=== PATIENT | female | born 1970 | race Caucasian/White ===

== ENCOUNTER → 2016-12-21 | Outpatient (CLI) | payer MEDICARE | END | disposition home or self-care (01) | LOC: CPPFTMAIN 10:30 | PROVIDERS: ATTEND Family Medicine | DX: J43.9 Emphysema, unspecified (principal) | CPT/HCPCS: 94060; 94726; 94729 ==

== ENCOUNTER → 2017-02-24 | Outpatient (CLI) | payer MEDICARE ==
--- NOTE | 2017-02-28 08:33 | MM ---
Reason for exam: screening (asymptomatic). Last mammogram was performed 1 year and 2 months ago. History: Patient is postmenopausal. Benign excisional biopsy of the right breast, 1998. Took hormonal contraceptives for 10 years beginning at age 19. Physical Findings: A clinical breast exam by your physician is recommended on an annual basis and results should be correlated with mammographic findings. MG 3D Screening Mammo W/Cad Bilateral CC and MLO view(s) were taken. Prior study comparison: December 30, 2015, bilateral MG screening mammo w CAD. The breast tissue is heterogeneously dense. This may lower the sensitivity of mammography. No significant changes when compared with prior studies. ASSESSMENT: Benign, BI-RAD 2 RECOMMENDATION: Routine screening mammogram of both breasts in 1 year.
== END | disposition home or self-care (01) ==
LOC: RADMAMWWP 10:26
PROVIDERS: ATTEND Family Medicine
DX: Z12.31 Encounter for screening mammogram for malignant neoplasm of breast (principal)
CPT/HCPCS: 77063; G0202

== ENCOUNTER → 2017-05-09 | Outpatient (CLI) | payer MEDICARE ==
--- NOTE | 2017-05-09 11:27 | XR ---
EXAMINATION TYPE: XR cervical spine comp DATE OF EXAM: 05/09/2017 TECHNIQUE: Frontal, lateral, oblique, and open mouth view of the cervical spine are obtained. HISTORY: M54.2 back pain . Neck pain for 3 weeks per patient. COMPARISON: Cervical spine x-ray March 27, 2014 FINDINGS: The cervical spine is visualized in its entirety from C1 thru the top of T1 level, it rede monstrates straightened alignment without evidence of acute fracture or dislocation. The pre-vertebr al soft tissue appears within normal limits. The C1-C2 articulation is within normal limits on the o pen mouth view. Vertebral body heights and disc space heights are maintained. The oblique images are within normal limits. Overlying soft tissue is unremarkable. IMPRESSION: Loss of normal cervical curvature otherwise unremarkable study. No significant change fro m prior.
== END | disposition home or self-care (01) ==
LOC: RADXRMAIN 10:54
PROVIDERS: ATTEND Family Medicine
DX: M40.202 Unspecified kyphosis, cervical region (principal); M54.2 Cervicalgia
CPT/HCPCS: 72050

== ENCOUNTER → 2017-12-26 | Outpatient (CLI) | payer MEDICARE ==
--- NOTE | 2017-12-26 15:48 | CT ---
EXAMINATION TYPE: CT abdomen w con DATE OF EXAM: 12/26/2017 COMPARISON: Prior CT abdomen pelvis 08/16/2011 HISTORY: R/O hiatal hernia, reflux. K 43.9, ventral hernia CT DLP: 1098 mGycm Automated exposure control for dose reduction was used. TECHNIQUE: Helical acquisition of images was performed from the lung bases through the top of iliac crest to include entire abdomen. CONTRAST: Performed with Oral Contrast and with IV Contrast, patient injected with 100 mL of Omnipaque 300. FINDINGS: Gastroesophageal junction shows a similar appearance to prior exam, the may be a small hiat al hernia LUNG BASES: No significant abnormality is appreciated. LIVER/GB: Liver is at the upper limit of normal for size, there is low attenuation, consider hepatic steatosis, gallbladder are unremarkable. PANCREAS: No significant abnormality is seen. SPLEEN: Upper limit of normal for size ADRENALS: No significant abnormality is seen. KIDNEYS: Extrarenal pelves are present within the kidneys BOWEL: Diverticular changes associated with the sigmoid colon, the appendix is normal. LYMPH NODES: No significant abnormality is appreciated. OSSEOUS STRUCTURES: No significant abnormality is seen. FREE AIR: No Free Air visible ASCITES: None visible. RETROPERITONEAL ADENOPATHY: No Retroperitoneal Adenopathy visible. IMPRESSION: DIVERTICULOSIS. DIFFICULT TO EXCLUDE SMALL HIATAL HERNIA. BORDERLINE SIZE OF THE LIVER AND SPLEEN. CO NSIDER HEPATIC STEATOSIS.
== END | disposition home or self-care (01) ==
LOC: RADCTMAIN 14:24
PROVIDERS: ATTEND Surgery Plastic and Reconstructive Surgery
DX: K57.90 Diverticulosis of intestine, part unspecified, without perforation or abscess without bleeding (principal)
CPT/HCPCS: 74160; Q9967

== ENCOUNTER → 2018-04-03 | Outpatient (CLI) | payer MEDICARE ==
--- NOTE | 2018-04-04 09:44 | MM ---
Reason for exam: screening (asymptomatic). Last mammogram was performed 1 year and 1 month ago. History: Patient is postmenopausal. Benign excisional biopsy of the right breast, 1998. Took hormonal contraceptives for 10 years beginning at age 19. Physical Findings: A clinical breast exam by your physician is recommended on an annual basis and results should be correlated with mammographic findings. MG 3D Screening Mammo W/Cad Bilateral CC and MLO view(s) were taken. Prior study comparison: February 24, 2017, bilateral MG 3d screening mammo w/cad. December 30, 2015, bilateral MG screening mammo w CAD. The breast tissue is heterogeneously dense. This may lower the sensitivity of mammography. There is no discrete abnormality. No significant changes when compared with prior studies. ASSESSMENT: Negative, BI-RAD 1 RECOMMENDATION: Routine screening mammogram of both breasts in 1 year.
== END | disposition home or self-care (01) ==
LOC: RADMAMWWP 09:26
PROVIDERS: ATTEND Family Medicine
DX: Z12.31 Encounter for screening mammogram for malignant neoplasm of breast (principal)
CPT/HCPCS: 77063; 77067

== ENCOUNTER → 2019-03-09 | Outpatient (CLI) | payer MEDICARE ==
--- NOTE | 2019-03-09 11:09 | XR ---
EXAMINATION TYPE: XR cervical spine comp DATE OF EXAM: 03/09/2019 CLINICAL HISTORY: pain COMPARISON: NONE TECHNIQUE: Frontal, lateral, oblique, swimmers, and open mouth view of the cervical spine are obtaine d. FINDINGS: The cervical spine is visualized in its entirety from C1 thru the top of T1 level. It is s atisfactory in alignment without evidence of acute fracture or dislocation. The pre-vertebral soft t issue appears within normal limits. Moderate degenerative disc space narrowing and spondylosis noted at C5-6 and C6-7. The C1-C2 articulation is unremarkable on the open mouth view. The oblique images are within normal limits. IMPRESSION: No acute fracture or dislocation is seen in the cervical spine.ICD 10 NO FRACTURE, INITI AL EVALUATION
[2019-03-09 11:35] LABS: Basophils % (A) 0 %; Eosinophils # (A) 0.1 k/uL (0-0.7); Eosinophils % (A) 3 %; HCT 40.7 % (34.0-46.0); HGB 13.5 gm/dL (11.4-16.0); Lymphocytes # (A) 1.2 k/uL (1.0-4.8); Lymphocytes % (A) 25 %; MCHC 33.2 g/dL (31.0-37.0); MCV 90.4 fL (80.0-100.0); Mean Platelet Volume 7.5; Monocytes # (A) 0.2 k/uL (0-1.0); Monocytes % (A) 4 %; Neutrophils # (A) 3.2 k/uL (1.3-7.7); Neutrophils % (A) 68 %; Platelet Count 173 k/uL (150-450); RDW 13.6 % (11.5-15.5); WBC 4.7 k/uL (3.8-10.6)
[2019-03-09 11:38] LABS: ALT 29 U/L (9-52); AST 39 U/L (14-36); Albumin 4.3 g/dL (3.5-5.0); Alkaline Phosphatase 118 U/L (38-126); Anion Gap 6 mmol/L; Blood Urea Nitrogen 4 mg/dL (7-17); Calcium 9.6 mg/dL (8.4-10.2); Carbon Dioxide 26 mmol/L (22-30); Chloride 109 mmol/L (98-107); Cholesterol 167 mg/dL (<200); Glucose 110 mg/dL (74-99); HDL Cholesterol 57 mg/dL (40-60); LDL Cholesterol,Calculated 44 mg/dL (0-99); Potassium 4.2 mmol/L (3.5-5.1); Sodium 141 mmol/L (137-145); Total Bilirubin 0.6 mg/dL (0.2-1.3); Total Protein 6.8 g/dL (6.3-8.2); Triglycerides 328 mg/dL (<150)
[2019-03-09 11:53] LABS: T4, Free (Free Thyroxine) 0.92 ng/dL (0.78-2.19)
== END | disposition home or self-care (01) ==
LOC: RADXRMAIN 10:27
PROVIDERS: ATTEND Family Medicine
DX: M54.2 Cervicalgia (principal); E03.9 Hypothyroidism, unspecified; J44.9 Chronic obstructive pulmonary disease, unspecified; Z51.81 Encounter for therapeutic drug level monitoring
CPT/HCPCS: 72050; 80053; 80061; 84439; 84443; 85025

== ENCOUNTER → 2019-08-01 | Outpatient (CLI) | payer MEDICARE ==
--- NOTE | 2019-08-01 11:58 | US ---
EXAMINATION TYPE: US abdomen complete DATE OF EXAM: 08/01/2019 COMPARISON: CT 2018 CLINICAL HISTORY: R10.12 Left upper quadrant pain. RUQ pain x 1 week EXAM MEASUREMENTS: Liver Length: 16.8 cm Gallbladder Wall: 0.2 cm CBD: 0.5 cm Spleen: 12.2 cm Right Kidney: 9.9 x 3.8 x 5.0 cm Left Kidney: 10.1 x 4.1 x 4.4 cm Pancreas: visualized portions wnl, limited by overlying midline bowel gas Liver: increased echogenicity Gallbladder: wnl Evidence for sonographic Garces's sign: no CBD: visualized portions wnl, limited by overlying bowel gas Spleen: wnl Right Kidney: wnl Left Kidney: wnl Upper IVC: wnl Abd Aorta: wnl IMPRESSION: 1. Mild fatty infiltration liver.
== END | disposition home or self-care (01) ==
LOC: RADUSWWP 10:55
PROVIDERS: ATTEND Family Medicine
DX: K76.0 Fatty (change of) liver, not elsewhere classified (principal)
CPT/HCPCS: 76700

== ENCOUNTER → 2019-09-04 | Outpatient (CLI) | payer MEDICARE ==
--- NOTE | 2019-09-04 11:48 | CT ---
EXAMINATION TYPE: CT abdomen pelvis wo con DATE OF EXAM: 09/04/2019 COMPARISON: 12/26/2017 HISTORY: 48-year-old female with pain, Diverticulitis CT DLP: 967 mGycm. Automated exposure control for dose reduction was used. TECHNIQUE: Contiguous axial scanning of the abdomen and pelvis without IV contrast. Coronal and sagit mei reconstructions performed. FINDINGS: Heart normal size without pericardial effusion. Lung bases without pleural effusion. Liver enlarged measuring 19.0 cm. Mildly diminished density suggest mild fatty infiltration. Spleen borderline enlarged and 13.8 cm. Gallbladder, adrenal glands, kidneys, and pancreas show no gross abnormal by noncontrast CT. Mild atherosclerotic calcifications abdominal aorta and iliac arteries without aneurysm. Normal appendix. Scattered mild stool. Mild diverticular change mid to distal sigmoid. No pericolic i nflammatory change. No dilated small bowel, free fluid, or free air. No mesenteric or retroperitoneal lymphadenopathy. Mild bladder wall thickening. Uterus is retroverted. Both ovaries are visualized. No abnormal fluid c ollection in the pelvis or pelvic lymphadenopathy. Bones: No osseous destructive process. IMPRESSION: 1. Only mild diverticular change of the mid to distal sigmoid. No CT findings of acute diverticuliti s. 2. Hepatomegaly (19.0 cm) with mild fatty infiltration. 3. Borderline splenomegaly (13.8 cm). 4. Mild bladder wall thickening. Correlate to exclude cystitis.
== END | disposition home or self-care (01) ==
LOC: RADCTMAIN 11:10
PROVIDERS: ATTEND Surgery Plastic and Reconstructive Surgery
DX: K57.30 Diverticulosis of large intestine without perforation or abscess without bleeding (principal); K76.0 Fatty (change of) liver, not elsewhere classified; R16.2 Hepatomegaly with splenomegaly, not elsewhere classified; N32.89 Other specified disorders of bladder
CPT/HCPCS: 74176

== ENCOUNTER 2020-11-14 05:44 | Emergency (ER) | payer MEDICARE ==
[2020-11-14] MEDS ORDERED: MORPHINE SULFATE 4 MG/ML SYRINGE IM STA (05:53)
[2020-11-14] MEDS ORDERED: SODIUM CHLORIDE 0.9% 500 ML 500 ML IV STA (06:10)
[2020-11-14] MEDS ORDERED: PROPOFOL 10 MG/ML 20 ML VIAL IV STA (06:10)
[2020-11-14] MEDS ORDERED: PROPOFOL 10 MG/ML 20 ML VIAL IV ONE (06:33)
--- NOTE | 2020-11-14 06:38 | XR ---
EXAM: XR Left Wrist Complete, 2 Views CLINICAL HISTORY: FALL, PAIN, DEFORMITY TECHNIQUE: Frontal and lateral views of the left wrist. COMPARISON: No relevant prior studies available. FINDINGS: Bones/joints: Acute comminuted moderately displaced Colles fracture with impaction of fracture fragments associated. Intra-articular extension cannot be definitely excluded. Overlying soft tissue swelling. No dislocation. Soft tissues: See above. IMPRESSION: Acute comminuted moderately displaced Colles fracture with impaction of fracture fragments associated. Intra-articular extension cannot be definitely excluded. Overlying soft tissue swelling.
--- NOTE | 2020-11-14 06:42 | ED ---
Upper Extremity HPI - General Source: patient, family Mode of arrival: ambulatory Limitations: physical limitation <Meek Evans - Last Filed: 11/14/20 07:02> <Don Maldonado - Last Filed: 11/19/20 07:27> - General Chief Complaint: Extremity Injury, Upper Stated Complaint: Fall, left wrist injury Time Seen by Provider: 11/14/20 05:59 - History of Present Illness Initial Comments: This is a 50-year-old female presents emergency Department chief complaint of left wrist injury. Patient states that she slipped on the snow falling Herself of left hand. Patient is right-hand dominant. She has had prior ganglion cyst removal on the left. No paresthesias. No head injury no loss conscious. She states there is a small abrasion no bleeding. Patient offers no complaints. Tetanus is up-to-date. (Meek Evans) - Related Data Home Medications Medication Instructions Recorded Confirmed Cetirizine HCl 10 mg PO DAILY 08/21/14 12/23/15 Cyclobenzaprine [Flexeril] 10 mg PO HS PRN 08/21/14 12/23/15 Hydrocodone/Acetaminophen [[place] 1 each PO Q4H PRN 08/21/14 12/23/15 10-325] Multivitamins, Thera [Multivitamin] 1 each PO DAILY 08/21/14 12/23/15 Potassium Chloride 20 meq PO DAILY 08/21/14 12/23/15 Pregabalin [Lyrica] 150 mg PO BID 08/21/14 12/23/15 Tiotropium 18 Mcg/Puff [Spiriva] 1 cap INHALATION DAILY PRN 08/21/14 12/23/15 buPROPion HCL [Wellbutrin XL] 300 mg PO DAILY 08/21/14 12/23/15 clonazePAM [KlonoPIN] 1 mg PO BID 08/21/14 12/23/15 ARIPiprazole [Abilify] 10 mg PO HS 09/25/15 12/23/15 Atorvastatin [Lipitor] 20 mg PO DAILY 09/25/15 12/23/15 Dicyclomine [Bentyl] 20 mg PO BID 09/25/15 12/23/15 Ibuprofen [Motrin] 800 mg PO Q6HR PRN 09/25/15 12/23/15 Omeprazole [PriLOSEC] 20 mg PO AC-BRKFST 09/25/15 12/23/15 Allergies Allergy/AdvReac Type Severity Reaction Status Date / Time No Known Allergies Allergy Verified 11/14/20 05:54 Review of Systems ROS Other: All systems not noted in ROS Statement are negative. <Meek Evans - Last Filed: 11/14/20 07:02> ROS Other: All systems not noted in ROS Statement are negative. <Don Maldonado - Last Filed: 11/19/20 07:27> ROS Statement: Those systems with pertinent positive or pertinent negative responses have been documented in the HPI. Past Medical History Past Medical History: COPD, Fibromyalgia, GERD/Reflux, Hyperlipidemia, Memory Impairment, Osteoarthritis (OA), Thyroid Disorder Additional Past Medical History / Comment(s): aug 03, 2012 cardiac arrest 6 episodes per pt due to anorexia,. 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 Absent: tenderness, meningismus, lymphadenopathy Respiratory exam: Present: normal lung sounds bilaterally. Absent: respiratory distress, wheezes, rales, rhonchi, stridor Cardiovascular Exam: Present: regular rate, normal rhythm, normal heart sounds. Absent: systolic murmur, diastolic murmur, rubs, gallop, clicks Extremities exam: Present: other (Left wrist there is obvious deformity, radial pulses palpable equal bilaterally, cap refill less than 2 seconds of all digits of left hand. There is no proximal forearm tenderness no humeral tenderness) <Meek Evans - Last Filed: 11/14/20 07:02> Course Vital Signs 11/14/20 11/14/20 11/14/20 05:55 06:27 06:30 Temperature 97.4 F L Pulse Rate 87 86 85 Respiratory 22 19 18 Rate Blood Pressure 121/60 121/86 102/75 O2 Sat by Pulse 96 98 98 Oximetry 11/14/20 11/14/20 11/14/20 06:35 06:40 06:45 Temperature Pulse Rate 83 84 87 Respiratory 17 16 18 Rate Blood Pressure 113/69 108/50 112/76 O2 Sat by Pulse 98 96 95 Oximetry 11/14/20 11/14/20 11/14/20 06:47 07:00 07:32 Temperature 98.0 F Pulse Rate 82 81 86 Respiratory 19 17 18 Rate Blood Pressure 109/77 116/83 118/83 O2 Sat by Pulse 96 97 96 Oximetry Procedures - Orthopedic Fracture Reduction Fracture #1 Consent Obtained: written consent Side: left Fracture Reduction Location: radius, ulna Analgesia: procedural sedation Technique: direct manipulation Post Reduction X-rays Demonstrate: anatomical reduction Post-Reduction Neuro Exam: intact Post-Reduction Vascular Exam: intact Splint Applied: Yes Patient Tolerated Procedure: well, no complications - Orthopedic Splinting/Casting Injury #1 Side: left Upper Extremity Injury Location: short arm, wrist Upper Extremity Immobilizer: volar splint, synthetic pre-padded splint <Meek Evans - Last Filed: 11/14/20 07:02> - Procedural Sedation Indications: fracture/dislocation reduction ASA Class: II Mallampati Airway Score: 3 Preparation: cardiac monitor technician applied, pulse oximeter, capnometry used, supplemental O2 applied, suction/airway equipment at bedside, IV secured IV Propofol Dose (mgs): 130 Complications: none Patient Tolerated Procedure: well, no complications <Don Maldonado - Last Filed: 11/19/20 07:27> - Procedural Sedation Additional Comments: I discussed risks, benefits, indications of procedural sedation and closed reduction of the patient's left wrist fracture. Propofol was administered in aliquots until the sedation level was achieved. Closed reduction and sedation performed with no complication, patient tolerated procedure well. (Don Maldonado) Medical Decision Making <Meek Evans - Last Filed: 11/14/20 07:02> <Don Maldonado - Last Filed: 11/19/20 07:27> - Medical Decision Making 50-year-old female presented for fall, left wrist injury. Patient had wrist fracture with displacement. This was reduced with procedural sedation. Patient will follow-up with orthopedics. Patient has seen Dr. Pike in the past. Patient provided on-call orthopedics and her prior orthopedic surgeon (Meek Evans) I saw this patient in conjunction with the physician medical services assistant. I performed independent history and physical exam. I directly supervised and participated in the procedure. Agree with case management. Case discussed with orthopedic surgeon on-call, who did offer admission, but the patient does so slowly feeling better and declines. She will follow-up in clinic. Discussed appropriate follow-up and return parameters. (Don Maldonado) Disposition Is patient prescribed a controlled substance at d/c from ED?: No Time of Disposition: 07:03 <Meek Evans - Last Filed: 11/14/20 07:02> <Don Maldonado - Last Filed: 11/19/20 07:27> Clinical Impression: Fracture, Colles, left, closed Disposition: HOME SELF-CARE Condition: Stable Instructions (If sedation given, give patient instructions): Arm Fracture in Adults (ED), Moderate Sedation (ED) Additional Instructions: Please return to the Emergency Department if symptoms worsen or any other concerns. Referrals: Steven Slater MD [Primary Care Provider] - 1-2 days Alex Pike DO [Doctor of Osteopathic Medicine] - 1-2 days David Campoverde DO [Doctor of Osteopathic Medicine] - 1-2 days
[2020-11-14] MEDS ORDERED: KETOROLAC 15 MG/ML 1 ML VIAL IVP STA (06:46)
[2020-11-14] MEDS ORDERED: MORPHINE SULFATE 4 MG/ML SYRINGE IVP STA (06:46)
--- NOTE | 2020-11-14 07:18 | XR ---
EXAM: XR Left Wrist Complete, 2 Views CLINICAL HISTORY: Postreduction TECHNIQUE: Frontal and lateral views of the left wrist. COMPARISON: Earlier the same day. FINDINGS: Bones/joints: Overlying cast obscures fine bony detail and limits evaluation. Interval reduction of previously noted Colles fracture. Probable nondisplaced fracture of the head of the ulna, more conspicuous on this study than the prior. No dislocation. Soft tissues: Associated overlying soft tissue swelling. No radiopaque foreign body. IMPRESSION: 1. Interval reduction of previously noted Colles fracture. 2. Probable nondisplaced fracture of the head of the ulna, more conspicuous on this study than the prior.
[2020-11-14 07:32] VITALS: BP 118/83; PULSE 86; RESP 18; TEMP 98
--- NOTE | 2020-11-15 10:58 | CDI ---
Dear Don Maldonado MD Please do addendum to ED report start and stop time of moderate sedation for fracture reduction. Thank you, Dequan [employer] Contract Analyst If you have any questions, please contact Television Producer at [phone] [facility]
== END 2020-11-14 07:45 | disposition home or self-care (01) ==
LOC: EC 05:44
DX: S52.532A Colles' fracture of left radius, initial encounter for closed fracture (principal); J44.9 Chronic obstructive pulmonary disease, unspecified; K21.9 Gastro-esophageal reflux disease without esophagitis; E78.5 Hyperlipidemia, unspecified; M19.90 Unspecified osteoarthritis, unspecified site; F41.9 Anxiety disorder, unspecified; F32.9 Major depressive disorder, single episode, unspecified; F43.10 Post-traumatic stress disorder, unspecified; F17.200 Nicotine dependence, unspecified, uncomplicated; Z79.899 Other long term (current) drug therapy; W00.0XXA Fall on same level due to ice and snow, initial encounter
CPT/HCPCS: 99283; 96374; 96375; 96372; 25605; 99152; 73100; J2270; J1885; J2704

== ENCOUNTER → 2021-04-22 | Outpatient (CLI) | payer MEDICARE ==
--- NOTE | 2021-04-23 14:54 | MM ---
Reason for exam: screening (asymptomatic). Last mammogram was performed 2 years ago. History: Patient is postmenopausal. Benign excisional biopsy of the right breast, 1998. Took hormonal contraceptives for 10 years beginning at age 19. Physical Findings: A clinical breast exam by your physician is recommended on an annual basis and results should be correlated with mammographic findings. MG 3D Screening Mammo W/Cad Bilateral CC and MLO view(s) were taken. Prior study comparison: April 11, 2019, bilateral MG 3d screening mammo w/cad. April 03, 2018, bilateral MG 3d screening mammo w/cad. The breast tissue is heterogeneously dense. This may lower the sensitivity of mammography. ASSESSMENT: Negative, BI-RAD 1 RECOMMENDATION: Routine screening mammogram of both breasts in 1 year.
== END | disposition home or self-care (01) ==
LOC: RADMAMWWP 09:05
PROVIDERS: ATTEND Family Medicine
DX: Z12.31 Encounter for screening mammogram for malignant neoplasm of breast (principal); Z78.0 Asymptomatic menopausal state; Z79.3 Long term (current) use of hormonal contraceptives
CPT/HCPCS: 77063; 77067

== ENCOUNTER → 2021-08-28 | Outpatient (CLI) | payer MEDICARE ==
--- NOTE | 2021-08-28 10:31 | CT ---
EXAMINATION TYPE: CT abdomen pelvis wo con DATE OF EXAM: 08/28/2021 HISTORY: Right lower quadrant pain CT DLP: 913 mGycm. Automated Exposure Control for Dose Reduction was Utilized. TECHNIQUE: CT scan of the abdomen and pelvis is performed with oral but without IV contrast. COMPARISON: CT abdomen and pelvis September 04, 2019 FINDINGS: Within the limitations of a non-contrast study, the following observations are made. LUNG BASES: Some reticulation and suspect dependent atelectasis or mild scarring in the posterior asp ect of the lung bases similar to prior. LIVER/GB: Liver size stable. Upper limits of normal. PANCREAS: No significant abnormality is seen. SPLEEN: Stable mild splenomegaly at 13.7 cm long axis coronal image 54. ADRENALS: No significant abnormality is seen. KIDNEYS: Extrarenal pelvises redemonstrated bilaterally. BOWEL: Oral contrast only reaches level of the proximal ileal loops making evaluation of bowel slight ly suboptimal. There is no suspicious small or large bowel dilatation. Terminal ileum shows possible mild wall thickening coronal image 46. Appendix appears within normal limits ascending from the cecum . Just superior to the cecum there is a prominent 1.9 cm diverticulum with moderate focal surrounding fluid and fat stranding. Findings consistent with acute diverticulitis. No free air. No Well-formed fluid collection or abscess. GENITAL ORGANS: Retroflexed uterus. LYMPH NODES: No greater than 1cm abdominal or pelvic lymph nodes are appreciated. OSSEOUS STRUCTURES: No significant abnormality is seen. OTHER: Mild calcified plaque of the abdominal aorta extends into branch vessels. IMPRESSION: New focal moderate right-sided uncomplicated acute diverticulitis. A Yellow level critical message alert has been initiated for Eran Stinson Jr, DO via the [employer] Critical Results System on 08/28/2021 10:29 AM. This message alert has been sent to Eran caban Jr, DO via the preferences provided by the clinician for the receipt of Radiology Critical Findi ngs. Message ID [id number].
== END ==
LOC: RADCTMAIN 08:44
PROVIDERS: ATTEND Family Medicine
DX: K57.32 Diverticulitis of large intestine without perforation or abscess without bleeding (principal)
CPT/HCPCS: 74176

== ENCOUNTER → 2022-06-18 | Outpatient (CLI) | payer MEDICARE ==
--- NOTE | 2022-06-25 17:52 | MM ---
Reason for Exam: Screening (asymptomatic). Last mammogram was performed 1 year(s) and 2 month(s) ago. Patient History: Menarche at age 12. First Full-Term at age 19. Postmenopausal. Hormonal Contraceptives for 10 years from age 19 until age 31. 1999, Benign Excisional Biopsy on the right side. Risk Values: Justine 5 year model risk: 1.1%. NCI Lifetime model risk: 9.1%. Prior Study Comparison: 04/03/2018 Bilateral Screening Mammogram, [facility]. 04/11/2019 Bilateral Screening Mammogram, [facility]. 04/22/2021 Bilateral Screening Mammogram, [facility]. Tissue Density: The breast tissue is heterogeneously dense. This may lower the sensitivity of mammography. Findings: Analyzed By CAD. There is no suspicious group of microcalcifications or new suspicious mass in either breast. Overall Assessment: Negative, BI-RAD 1 Management: Screening Mammogram of both breasts in 1 year. A clinical breast exam by your physician is recommended on an annual basis and results should be correlated with mammographic findings. Electronically signed and approved by: Woody Luo DO
== END | disposition home or self-care (01) ==
LOC: RADMAMWWP 09:42
PROVIDERS: ATTEND Family Medicine
DX: Z12.31 Encounter for screening mammogram for malignant neoplasm of breast (principal); Z78.0 Asymptomatic menopausal state
CPT/HCPCS: 77063; 77067

== ENCOUNTER → 2022-10-26 | Outpatient (CLI) | payer MEDICARE ==
--- NOTE | 2022-10-26 16:42 | US ---
EXAMINATION TYPE: US abdomen complete DATE OF EXAM: 10/26/2022 COMPARISON: 08/01/2019 and 08/28/2021 CLINICAL HISTORY: 51-year-old female R16.1 SPLENOMEGALY, NOT ELSEWHERE CLASSIFIED. Splenomegaly for 1 year, burning sensation in LUQ near ribs TECHNIQUE: Multiple sonographic images of the abdomen are obtained. FINDINGS: EXAM MEASUREMENTS: Liver Length: 16.4 cm Gallbladder Wall: 0.2 cm CBD: 0.6 cm Spleen: 13.3 cm (12.2 cm on 08/01/2019 and 13.7 cm on 08/28/2021) Right Kidney: 9.5 x 4.7 x 4.2 cm Left Kidney: 9.5 x 3.9 x 4.4 cm Pancreas: wnl Liver: Slight increased echogenicity. No focal lesion seen. Gallbladder: wnl Evidence for sonographic Garces's sign: no CBD: Borderline caliber, likely age related change. Spleen: Borderline enlarged Right Kidney: wnl Left Kidney: wnl Upper IVC: wnl Abd Aorta: wnl IMPRESSION: 1. Borderline splenomegaly 13.3 cm, similar compared to the CT of 08/28/2021. 2. Possible mild fatty infiltration of the liver.
== END | disposition home or self-care (01) ==
LOC: RADUSWWP 09:28
PROVIDERS: ATTEND Family Medicine
DX: R16.1 Splenomegaly, not elsewhere classified (principal)
CPT/HCPCS: 76700

== ENCOUNTER → 2023-05-16 | Outpatient (CLI) | payer MEDICARE ==
--- NOTE | 2023-05-16 13:31 | XR ---
EXAMINATION TYPE: XR pelvis AP view DATE OF EXAM: 05/16/2023 12:48 PM INDICATION: Patient age:Female; 52 years old; Reason for study: M54.9,W10.8XXA,M53.3; COMPARISON: 03/27/2014. TECHNIQUE: The pelvis was examined in a single projection. FINDINGS: There is no evidence of fracture or dislocation. There is no soft tissue abnormality. No a bnormal calcifications are present. The spine appears intact. There is osteophyte formation and joint space narrowing of the hips. IMPRESSION: Mild degeneration changes of the hips with joint space narrowing and osteophyte formation. Findings m inimally progressed from 2013.
--- NOTE | 2023-05-16 13:33 | XR ---
EXAMINATION TYPE: XR lumbar spine 2 or 3V DATE OF EXAM: 05/16/2023 12:48 PM INDICATION: Patient age:Female; 52 years old; Reason for study: M54.9,W10.8XXA,M53.3; [facility]. COMPARISON: 03/27/2014 TECHNIQUE: Frontal, lateral and coned in L5-S1 lateral views of the spine. FINDINGS: No evidence of any acute osseous pathology. No evidence of loss of vertebral body height i s seen. There is normal alignment of the lumbar vertebral bodies. Mild degeneration changes with disc space narrowing and facet joint arthropathy with osteophyte formation. IMPRESSION: 1. No acute fracture. 2. Mild multilevel disc degeneration. Findings minimally progressed from 2013.
== END | disposition home or self-care (01) ==
LOC: RADXRMAIN 12:04
PROVIDERS: ATTEND Family Medicine
DX: M16.0 Bilateral primary osteoarthritis of hip (principal); M54.9 Dorsalgia, unspecified; W10.8XXA Fall (on) (from) other stairs and steps, initial encounter; M53.3 Sacrococcygeal disorders, not elsewhere classified
CPT/HCPCS: 72100; 72170

== ENCOUNTER → 2023-07-15 | Outpatient (CLI) | payer MEDICARE ==
--- NOTE | 2023-07-18 08:04 | MM ---
Reason for Exam: Screening (asymptomatic). Last mammogram was performed 1 year(s) and 1 month(s) ago. Patient History: Menarche at age 12. First Full-Term at age 19. Postmenopausal. Hormonal Contraceptives for 10 years from age 19 until age 31. 1999, Benign Excisional Biopsy on the right side. Risk Values: Justine 5 year model risk: 1.2%. NCI Lifetime model risk: 9.0%. Prior Study Comparison: 04/11/2019 Bilateral Screening Mammogram, [facility]. 04/22/2021 Bilateral Screening Mammogram, [facility]. 06/18/2022 Bilateral MG 3D screening mammo w/cad, [facility]. Tissue Density: The breast tissue is heterogeneously dense. This may lower the sensitivity of mammography. Findings: Analyzed By CAD. There is no suspicious group of microcalcifications or new suspicious mass. Overall Assessment: Negative, BI-RAD 1 Management: Screening Mammogram of both breasts in [address] [facility] will attempt to contact patient to return for supplemental views and ultrasound if indicated. Patient should continue monthly self-breast exams. A clinical breast exam by your physician is recommended on an annual basis. This exam should not preclude additional follow-up of suspicious palpable abnormalities. Note on Justine scores and lifetime risk: 1. A Justine score greater than 3% is considered moderate risk. If this is the case, consider specialist referral to assess eligibility for a risk reducing agent. 2. If overall lifetime risk for the development of breast cancer is 20% or higher, the patient may qualify for future screening with alternating mammogram and breast MRI. Electronically signed and approved by: Woody Luo DO
== END | disposition home or self-care (01) ==
LOC: RADMAMWWP 08:43
PROVIDERS: ATTEND Family Medicine
DX: Z12.31 Encounter for screening mammogram for malignant neoplasm of breast (principal); Z78.0 Asymptomatic menopausal state
CPT/HCPCS: 77063; 77067

== ENCOUNTER → 2023-07-29 | Outpatient (CLI) | payer MEDICARE ==
--- NOTE | 2023-07-29 12:21 | BD ---
EXAMINATION TYPE: Axial Bone Density DATE OF EXAM: 07/29/2023 CLINICAL HISTORY: 52 years old Female. ICD-10 CODE: M54.89 DORSALGIA Height: 56.25 Weight: 177.5 FRAX RISK QUESTIONS: Alcohol (3 or more units per day): no Family History (Parent hip fracture): no Glucocorticoids (More than 3mos): no History of Fracture in Adulthood: Wrist, Ribs, Ankle Secondary Osteoporosis: 1. Type 1 Diabetes: no 2. Hyperthyroidism: no 3. Menopause before 45: yes 4. Malnutrition: yes 2011 5. Chronic liver disease: no Rheumatoid Arthritis: no Current Tobacco Use: yes RISK FACTORS HISTORY OF: Hip Fracture (Right/Left): no Spine Fracture: no History of Wrist Fracture: lt Wrist When: age 50 Surgery to Spine/Hip(right/left)/Wrist (right/left): no Family History of Osteoporosis: Maternal Grandmother Active: somewhat Diet low in dairy products/other sources of calcium: no Postmenopausal woman: yes Take estrogen and/or progesterone medications: no Lost more than 2 inches in height since high school: no Frequent falls: no Poor Health: yes Hyperparathyroidism: no Adrenal Insufficiency: no MEDICATIONS: Prednisone or other steroids: mo Thyroid Medications: levothyroxine How Long: Past 10 years Osteoporosis Medications: no Additional Medications: Cholesterol Meds, BP Meds, Reflux Meds, Depression Meds x2, Additional History: EXAM MEASUREMENTS: Bone mineral densitometry was performed using the [employer] System. Bone mineral density as measured about the Lumbar spine is: ----- L1-L4(G/cm2): 1.217 T Score Values are as follows: ----- L1: 0.6 ----- L2: 0.0 ----- L3: 0.0 ----- L4: 0.6 ----- L1-L4: 0.3 Z Score Values are as follows: ----- L1: 0.8 ----- L2: 0.2 ----- L3: 0.2 ----- L4: 0.7 ----- L1-L4: 0.5 Baseline Study Bone mineral density about the R hip (g/cm2): 1.048 Bone mineral density about the L hip (g/cm2): 1.121 T Score values are as follows: -----R Neck: 0.6 -----L Neck: 0.8 -----R Total: 0.3 -----L Total: 0.9 Z Score values are as follows: -----R Neck: 1.2 -----L Neck: 1.4 -----R Total: 0.5 -----L Total: 1.1 Baseline Study FRAX%s: The graph provided illustrates a 6.9% chance for a major osteoporotic fx and a 0.1% chance fo r the hips probability for fx in 10 years time. IMPRESSION: Normal (Values between +1 and -1 indicate normal bone mass). Consider repeating this study in 5 year s or sooner if there is some new clinical indication. NOTE: T-SCORE=SD OF THE YOUNG ADULT MEAN.
== END | disposition home or self-care (01) ==
LOC: RADBDWWP 09:55
PROVIDERS: ATTEND Family Medicine
DX: M54.89 Other dorsalgia (principal); R22.9 Localized swelling, mass and lump, unspecified; Z78.0 Asymptomatic menopausal state
CPT/HCPCS: 77080

== ENCOUNTER → 2023-08-05 | Outpatient (CLI) | payer MEDICARE ==
--- NOTE | 2023-08-05 09:31 | MR ---
EXAMINATION TYPE: MR lumbar spine wo con DATE OF EXAM: 08/05/2023 COMPARISON: Prior lumbar spine x-ray May 16, 2023 HISTORY: Back pain, into right buttock, S/P injury right before april. TECHNIQUE: Multiplanar, multisequence imaging of the lumbar spine is performed without IV contrast. FINDINGS: Sagittal images of the lumbar spine show vertebral body heights to appear satisfactory. The re is slight grade 1 retrolisthesis L3 on L4. Multilevel disc desiccation is seen with disc space hei ghts are preserved. The conus medullaris is normal in position and signal ending at T12-L1 level. T he bone marrow signal intensity is within normal limits. Axial images show T12-L1 through the L2-L3 levels to appear within normal limits. Axial images at L3-L4 level shows central disc protrusion and annular tear minimally effacing anterio r thecal sac. Bilateral neural foramina are patent. Axial images at L4-L5 level show mild/moderate facet arthropathy bilaterally. Axial images at L5-S1 level show mild facet arthropathy bilaterally. There is broad-based posterior d isc protrusion with right foraminal component causing moderate right-sided anterior inferior neural f oraminal narrowing. Spinal canal is preserved. Left-sided neural foramina is patent. Paraspinal muscle bulk is maintained. IMPRESSION: L3-L4 subtle spondylolisthesis. Multilevel degenerative change in the mid to lower lumbar spine seen as detailed above. Eccentric right-sided disc herniation L5-S1 level causes asymmetric ri ght-sided neural foraminal narrowing.
--- NOTE | 2023-08-05 11:47 | MR ---
EXAMINATION TYPE: MR pelvis wo/w con DATE OF EXAM: 08/05/2023 7:22 AM CLINICAL INDICATION:Female, 52 years old with history of M54.9 BACK PAIN R22.9 MASS OF SKIN; Soft tis jamey mass, lower back right side, marker placed. COMPARISON: MR lumbar spine 08/05/2023 TECHNIQUE: Triplane multisequence imaging was performed of the pelvis. IV Contrast: 7.5 cc Gadavist FINDINGS: Reproductive: Vagina: Unremarkable. Uterus: The uterus is anteverted in position. Uterus measures 5.9 x 2.3 x 4.2 cm. The endometrium and junctional zone are within normal limits. Multiple nabothian cysts are seen in the lower uterine se gment. Ovaries: Follicular changes are noted to the ovaries. Bladder: Unremarkable. Bowel: Unremarkable as visualized. Peritoneum: None. Lymph nodes: No evidence of adenopathy. Vasculature: Unremarkable. Musculoskeletal: Bone marrow signal is within normal signal intensity. Abdominal wall/soft tissues: No soft tissue mass in the area of palpable abnormality. Lipomatous tiss ue is primarily in this region. Fat-containing umbilical hernia is tiny. IMPRESSION: Palpable marker correlates with subcutaneous fat. No suspicious mass or organizing fluid collection. Findings likely representing underlying lipoma.
== END | disposition home or self-care (01) ==
LOC: RADMRIMAIN 05:58
PROVIDERS: ATTEND Family Medicine
DX: M43.16 Spondylolisthesis, lumbar region (principal); M47.817 Spondylosis without myelopathy or radiculopathy, lumbosacral region; M99.73 Connective tissue and disc stenosis of intervertebral foramina of lumbar region; M51.37 Other intervertebral disc degeneration, lumbosacral region; R22.9 Localized swelling, mass and lump, unspecified
CPT/HCPCS: 72148; 72197; A9585

== ENCOUNTER 2024-01-20 10:59 | Day surgery (SDC) | payer MEDICARE, OTHER ==
[2024-01-17 15:13] VITALS: BMI 26.6
[~2024-01-20 10:59] MED LIST: MIDAZOLAM 2 MG/2 ML VIAL IV PRN; Pre Op ABX Message 1 EACH MISC MISCELLANE ONE; SCOPOLAMINE 1 MG/72 HR PATCH TRANSDERM ONE
[2024-01-20] MEDS: LACTATED RINGERS 1,000 ML IV SCH (11:33)
[2024-01-20] MEDS: DEXAMETHASONE SOD PHOSPHATE 4 MG/ML 1 ML VIAL IV ONE (12:02)
[2024-01-20] MEDS: ONDANSETRON 4 MG/2 ML VIAL IVP ONE (12:02)
[2024-01-20] MEDS: HEPARIN SODIUM,PORCINE 5,000 UNIT/ML 1 ML VIAL SQ PRN (12:02)
[2024-01-20] MEDS: ACETAMINOPHEN TAB 500 MG TAB PO PRN (12:02)
[2024-01-20] MEDS ORDERED: fentaNYL (PF) 50 MCG/ML 2 ML AMP ONE (13:17)
[2024-01-20] MEDS ORDERED: LIDOCAINE 1% INJ 10MG/ML (20 ML MDV) ONE (13:17)
[2024-01-20] MEDS ORDERED: MIDAZOLAM 2 MG/2 ML VIAL ONE (13:17)
[2024-01-20] MEDS ORDERED: PROPOFOL 10 MG/ML 20 ML VIAL IV ONE (13:17)
[2024-01-20] MEDS ORDERED: ceFAZolin 1 GM/50 ML BAG (PMX) ONE (13:17)
[2024-01-20] MEDS: SODIUM CHLORIDE 0.9% 100 ML with ceFAZolin 2,000 MG IV ONE (13:44)
[2024-01-20] MEDS: BUPIVACAINE (PF) 0.25% 30 ML VIAL SQ ONE (13:47)
[2024-01-20] MEDS ORDERED: HYDROcodone/APAP 5-325MG 1 EACH TAB PO PRN (14:30)
[2024-01-20] MEDS ORDERED: NALOXONE 0.4 MG/ML 1 ML VIAL IV PRN (14:30)
--- NOTE | 2024-01-20 14:32 | P.OP ---
Date of Procedure: 01/20/24 Procedure(s) Performed: PREOPERATIVE DIAGNOSIS: Right lower back lipoma POSTOPERATIVE DIAGNOSIS: Same PROCEDURE: Excision right lower back lipoma with intermediate closure SURGEON: María Elena EBL: 10 cc ANESTHESIA: General COMPLICATIONS: None OPERATIVE PROCEDURE: Patient placed on the operating table in the left cubitus position. The right lower back was prepped and draped sterilely. A incision was made along the lines of her tattoo overlying the palpable mass. The subcutaneous tissues were divided using electrocautery. A moderate-sized lipoma was then identified. This measured 6 x 2.5 cm. This was fully excised. Small areas of bleeding were controlled using electrocautery. Subcutaneous tissues c losed using 3-0 Vicryl sutures. Skin closed using a running 4-0 Monocryl stitch. Skin glue and sterile dressings applied. Length of intermediate closure 4 cm DISPOSITION: Stable to recovery room
[2024-01-20] MEDS: HYDROmorphone 0.5 MG/0.5 ML SYRINGE IVP PRN (14:42)
[2024-01-20 15:02] VITALS: TEMP 98.1
[2024-01-20 15:42] VITALS: BP 124/77; PULSE 102; RESP 20
== END 2024-01-20 15:41 | disposition home or self-care (01) ==
LOC: OR 10:59
PROVIDERS: ATTEND Surgery
DX: D17.1 Benign lipomatous neoplasm of skin and subcutaneous tissue of trunk (principal); E78.5 Hyperlipidemia, unspecified; J44.9 Chronic obstructive pulmonary disease, unspecified; E03.9 Hypothyroidism, unspecified; F41.9 Anxiety disorder, unspecified; F32.A Depression, unspecified; F43.10 Post-traumatic stress disorder, unspecified; F17.210 Nicotine dependence, cigarettes, uncomplicated; M79.7 Fibromyalgia; K21.9 Gastro-esophageal reflux disease without esophagitis; Z79.899 Other long term (current) drug therapy; Z79.84 Long term (current) use of oral hypoglycemic drugs; Z79.890 Hormone replacement therapy
CPT/HCPCS: 21931; J2250; J1644; J1100; J2405; J0690 ×2; J2001; J3010; J2704; J1170; J0665; 88304

== ENCOUNTER → 2024-04-25 | Outpatient (CLI) | payer MEDICARE, OTHER ==
--- NOTE | 2024-04-25 13:17 | CTL ---
EXAMINATION TYPE: CT Low Dose Lung DATE OF EXAM ORDERED: 04/25/2024 HISTORY: . Low Dose CT Lung Screening CT DLP: 86.[address] CTDI: 2.3 mGy IV CONTRAST USED: None. SCREENING VISIT: First visit COMPARISON: None. TECHNIQUE: Low dose computed tomography scan was performed through the chest at 1 millimeter thick se ctions and reconstructed images in the coronal plane at [address] DIAGNOSTIC QUALITY: Satisfactory FINDINGS: LUNG NODULES: Not presentLeft lung: no nodules identified.Right lung: no nodules identified. LUNGS: COPD: Severity: Moderate emphysematous changes. Fibrosis: Severity: Mild Lymph nodes: None Other findings: None RIGHT PLEURAL SPACE: Effusion: None Calcification: None Thickening: None Pneumothorax: None LEFT PLEURAL SPACE: Effusion: None Calcification: None Thickening: None Pneumothorax: None HEART: Heart Size: Mildly enlarged Coronary calcification: Mild Pericardial effusion: None OTHER FINDINGS: Upper abdomen: No significant abnormality Bony thorax: Degenerative changes Supraclavicular region: No significant abnormalityOther: No significant abnormalityI IMPRESSION: No discrete pulmonary nodules identified. FOLLOW UP CT CHEST RECOMMENDATION: Follow-up screening in one year CT LUNG RAD: LUNG RAD CATEGORY 1 negative
== END | disposition home or self-care (01) ==
LOC: RADCTMAIN 08:32
PROVIDERS: ATTEND Family Medicine
DX: Z12.2 Encounter for screening for malignant neoplasm of respiratory organs (principal); F17.200 Nicotine dependence, unspecified, uncomplicated; R06.02 Shortness of breath
CPT/HCPCS: 71271

== ENCOUNTER → 2024-07-16 | Outpatient (CLI) | payer MEDICARE, OTHER ==
--- NOTE | 2024-07-17 19:29 | MM ---
Reason for Exam: Screening (asymptomatic). Last screening mammogram was performed 12 month(s) ago. Patient History: Menarche at age 12. First Full-Term at age 19. Postmenopausal. Hormonal Contraceptives for 10 years from age 19 until age 31. 1998, Benign Excisional Biopsy on the right side. Risk Values: Justine 5 year model risk: 1.2%. NCI Lifetime model risk: 8.8%. Prior Study Comparison: 04/22/2021 Bilateral Screening Mammogram, [facility]. 06/18/2022 Bilateral MG 3D screening mammo w/cad, [facility]. 07/15/2023 Bilateral MG 3D screening mammo w/cad, [facility]. Tissue Density: The breasts are heterogeneously dense, which may obscure small masses. Findings: Analyzed By CAD. Subareolar asymmetric density right cc view is unchanged. There is no suspicious group of microcalcifications or new suspicious mass in either breast. Overall Assessment: Benign, BI-RAD 2 Management: Screening Mammogram of both breasts in 1 year. . Patient should continue monthly self-breast exams. A clinical breast exam by your physician is recommended on an annual basis. This exam should not preclude additional follow-up of suspicious palpable abnormalities. Note on Justine scores and lifetime risk: 1. A Justine score greater than 3% is considered moderate risk. If this is the case, consider specialist referral to assess eligibility for a risk reducing agent. 2. If overall lifetime risk for the development of breast cancer is 20% or higher, the patient may qualify for future screening with alternating mammogram and breast MRI. [facility], , 07/17/2024 7:27 PM. Electronically signed and approved by: Bert Nails M.D. Radiologist
== END | disposition home or self-care (01) ==
LOC: RADMAMWWP 10:19
PROVIDERS: ATTEND Family Medicine
CPT/HCPCS: 77063; 77067

== ENCOUNTER 2024-07-31 10:18 | Day surgery (SDC) | payer MEDICARE, OTHER ==
[~2024-07-31 10:18] MED LIST changes: +LIDOCAINE 1% (10MG/ML) FOR IV START INTRADERMA PRN; -MIDAZOLAM 2 MG/2 ML VIAL IV PRN; +ONDANSETRON 4 MG/2 ML VIAL IVP PRN; -Pre Op ABX Message 1 EACH MISC MISCELLANE ONE; -SCOPOLAMINE 1 MG/72 HR PATCH TRANSDERM ONE
[2024-07-31] MEDS: IV FLUID CONTINUATION 1,000 ML IV ONE (10:36)
[2024-07-31 10:44] VITALS: TEMP 97
[2024-07-31] MEDS: LACTATED RINGERS 1,000 ML IV SCH (10:47)
[2024-07-31] MEDS ORDERED: PROPOFOL 10 MG/ML 20 ML VIAL IV ONE (11:10)
--- NOTE | 2024-07-31 11:14 | P.GSHP ---
History of Present Illness H&P Date: 07/31/24 Chief Complaint: Colon cancer screening 53-year-old female here for colonoscopy. Last colonoscopy 10 to 12 years ago. No bowel complaints. Patient has no history of polyps. No family history of colon cancer. Past Medical History Past Medical History: COPD, Fibromyalgia, GERD/Reflux, Hyperlipidemia, Memory Impairment, Osteoarthritis (OA), Thyroid Disorder Additional Past Medical History / Comment(s): aug 03, 2012 cardiac arrest 6 episodes per pt due to anorexia,. 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 Smoking Status: Current every day smoker - Past Family History Mother Family Medical History: No Reported History Medications and Allergies Home Medications Medication Instructions Recorded Confirmed Type Cyclobenzaprine [Flexeril] 10 mg PO HS PRN 08/21/14 07/31/24 History Hydrocodone/Acetaminophen [[place] 1 each PO Q4H PRN 08/21/14 07/31/24 History 10-325] buPROPion HCL [Wellbutrin XL] 300 mg PO DAILY 08/21/14 07/31/24 History Atorvastatin [Lipitor] 40 mg PO DAILY 09/25/15 07/31/24 History Ibuprofen [Motrin] 800 mg PO Q6HR PRN 09/25/15 07/31/24 History Omeprazole [PriLOSEC] 40 mg PO AC-BRKFST 09/25/15 07/31/24 History Levothyroxine Sodium [Synthroid] 50 mcg PO DAILY 01/17/24 07/31/24 History Montelukast [Singulair] 10 mg PO DAILY 01/17/24 07/31/24 History PARoxetine HCL [Paxil] 40 mg PO HS 01/17/24 07/31/24 History Potassium Chloride [Klor-Con 10 ER] 20 meq PO BID 01/17/24 07/31/24 History Diclofenac Sodium [Voltaren 1 applic TOPICAL DIRECTED 07/26/24 07/31/24 History Arthritis Pain 1% Gel] Semaglutide [Ozempic] 0.25 mg SQ MO 07/26/24 07/31/24 History Allergies Allergy/AdvReac Type Severity Reaction Status Date / Time No Known Allergies Allergy Verified 07/31/24 10:39 Surgical - Exam Vital Signs Temp Pulse Resp BP Pulse Ox 97.0 F L 78 16 128/70 97 07/31/24 10:41 07/31/24 10:41 07/31/24 10:41 07/31/24 10:41 07/31/24 10:41 Physical exam: General: Well-developed, well-nourished HEENT: Normocephalic, sclerae nonicteric Abdomen: Nontender, nondistended Extremities: No edema Neuro: Alert and oriented Assessment and Plan (1) Colon cancer screening Narrative/Plan: Will proceed with colonoscopy at this time. Current Visit: Yes Status: Acute Code(s): Z12.11 - ENCOUNTER FOR SCREENING FOR MALIGNANT NEOPLASM OF COLON SNOMED Code(s): 593371506
--- NOTE | 2024-07-31 11:29 | P.PCN ---
Date of Procedure: 07/31/24 Procedure(s) Performed: PREOPERATIVE DIAGNOSIS: Screening with history of polyps POSTOPERATIVE DIAGNOSIS: Transverse colon polyp, diverticulosis PROCEDURE: Colonoscopy with biopsy ANESTHESIA: MAC SURGEON: Maurice Ring M.D. SPECIMENS: Polyp ENDOSCOPIC PROCEDURE: The patient was placed on the endoscopy table in the left decubitus position. The Olympus colonoscope was inserted into the anus and passed under direct visualization to the base of the cecum. The appendiceal orifice was visualized. From that point the scope was slowly withdrawn inspecting all surfaces carefully. There were no neoplastic inflammatory or polypoid lesions throughout the cecum or ascending colon. In the transverse colon a very small superficial polyp was noted and removed using the cold biopsy forceps. The remainder of the transverse descending sigmoid and rectum was normal. The patient had mild diverticulosis surprisingly mostly in the region of the cecum. Digital rectal examination was normal. The patient was taken to the recovery room in stable condition per anesthesia guidelines. RECOMMENDATIONS: Await biopsy results. Will contact patient with timing of next colonoscopy.
[2024-07-31 11:50] VITALS: BP 126/64; PULSE 76; RESP 18
== END 2024-07-31 12:12 | disposition home or self-care (01) ==
LOC: ORWHC2ENDO 10:18
PROVIDERS: ATTEND Surgery
CPT/HCPCS: 45380; 88305